=== PATIENT | female | born 1970 | race African-American/Black ===

== ENCOUNTER 2017-10-08 10:23 | Observation (INO) | payer OTHER ==
[2017-10-08] MEDS: IV NORMAL SALINE 1000ML BAG 1,000 ML IV ×2 (01:17→12:51)
[2017-10-08 11:00] LABS: POC GLUCOSE 83 mg/dL (70-99)
[2017-10-08 11:01] LABS: BILIRUBIN,URINE NEGATIVE (NEG); CLARITY,URINE CLEAR; COLOR,URINE YELLOW; GLUCOSE,URINE NEGATIVE (NEG); NITRITE,URINE NEGATIVE (NEG); PH,URINE 7.5; PROTEIN,URINE NEGATIVE (NEG-TRACE); UROBILINOGEN,URINE 0.2 mg/dL (0.2 mg/dL)
[2017-10-08 11:05] LABS: ADD MAN DIFF? NO
[2017-10-08 11:07] LABS: BASO % 1 % (0-3); EOS # 0.1 x10^3/uL (0.0-0.7); EOS % 3 % (0-3); HEMATOCRIT 40.2 % (36.0-47.0); HEMOGLOBIN 13.7 g/dL (12.0-15.5); LYMPH % 48 % (24-48); MEAN CORPUSCULAR HEMOGLOBIN 30 pg (25-35); MEAN CORPUSCULAR HGB CONC 34 g/dL (31-37); MEAN CORPUSCULAR VOLUME 89 fL (79-100); MONO # 0.4 x10^3/uL (0.0-1.1); MONO % 9 % (0-9); NEUT # 1.7 x10^3uL (1.8-7.7); NEUT % 39 % (31-73); PLATELET COUNT 380 x10^3/uL (140-400); RED BLOOD COUNT 4.53 x10^6/uL (3.50-5.40); RED CELL DISTRIBUTION WIDTH 13.8 % (11.5-14.5); WHITE BLOOD COUNT 4.3 x10^3/uL (4.0-11.0)
[2017-10-08 11:08] LABS: BARBITURATES NEG (NEG); BENZODIAZEPINES NEG (NEG); CANNABINOIDS NEG (NEG); COCAINE NEG (NEG); METHADONE NEG (NEG); OPIATES NEG (NEG); PHENCYCLIDINE NEG (NEG)
[2017-10-08 11:09] LABS: AMPHETAMINE/METHAMPHETAMINE NEG (NEG); ETHANOL, URINE NEG (NEG)
[2017-10-08 11:10] LABS: SQUAMOUS EPITHELIAL CELL,UR MOD /LPF
[2017-10-08 11:11] LABS: BACTERIA,URINE FEW /HPF (0-FEW); RBC,URINE 0 /HPF (0-2)
[2017-10-08 11:16] LABS: ANION GAP 11 (6-14); BLOOD UREA NITROGEN 14 mg/dL (7-20); CALCIUM 9.3 mg/dL (8.5-10.1); CARBON DIOXIDE 29 mmol/L (21-32); CHLORIDE 101 mmol/L (98-107); CREATININE 0.8 mg/dL (0.6-1.0); GFR 92.6; GLUCOSE 93 mg/dL (70-99); POTASSIUM 3.5 mmol/L (3.5-5.1); SODIUM 141 mmol/L (136-145)
[2017-10-08 11:17] LABS: PARTIAL THROMBOPLASTIN TIME 26 SEC (24-38); PROTHROMBIN TIME PATIENT 12.4 SEC (11.7-14.0)
[2017-10-08 11:22] LABS: ALBUMIN 3.9 g/dL (3.4-5.0); ALK PHOS 48 U/L (46-116); ALT (SGPT) 25 U/L (14-59); AST (SGOT) 14 U/L (15-37); TOTAL BILIRUBIN 0.6 mg/dL (0.2-1.0); TOTAL PROTEIN 7.9 g/dL (6.4-8.2)
[2017-10-08 11:33] LABS: DIRECT BILIRUBIN < 0.1 mg/dL (0.0-0.2)
[2017-10-08] MEDS ORDERED: MORPHINE SULFATE 4 MG/ML DISP.SYRIN. IV (12:45)
[2017-10-08] MEDS ORDERED: ONDANSETRON PF 4 MG/2 ML VIAL. IV (12:45)
[2017-10-08] MEDS: IOHEXOL 300 MG/ML 100ML VIAL. IV (13:00)
[2017-10-08] MEDS: diazePAM 5 MG TABLET PO (17:46)
[2017-10-08] MEDS: ENOXAPARIN 40 MG/0.4 ML SYRINGE. SQ (18:00)
[2017-10-08] MEDS: METOPROLOL TART IMMED RELEASE 50 MG TABLET. PO (20:51)
[2017-10-09 05:14] LABS: ADD MAN DIFF? NO
[2017-10-09 05:31] LABS: BASO % 1 % (0-3); EOS # 0.2 x10^3/uL (0.0-0.7); EOS % 3 % (0-3); HEMATOCRIT 33.4 % (36.0-47.0); HEMOGLOBIN 11.5 g/dL (12.0-15.5); LYMPH # 2.6 x10^3/uL (1.0-4.8); LYMPH % 53 % (24-48); MEAN CORPUSCULAR HEMOGLOBIN 31 pg (25-35); MEAN CORPUSCULAR HGB CONC 34 g/dL (31-37); MEAN CORPUSCULAR VOLUME 89 fL (79-100); MONO # 0.4 x10^3/uL (0.0-1.1); MONO % 8 % (0-9); NEUT # 1.8 x10^3uL (1.8-7.7); NEUT % 36 % (31-73); PLATELET COUNT 311 x10^3/uL (140-400); RED BLOOD COUNT 3.75 x10^6/uL (3.50-5.40); RED CELL DISTRIBUTION WIDTH 14.1 % (11.5-14.5)
[2017-10-09 05:51] LABS: ANION GAP 8 (6-14); BLOOD UREA NITROGEN 15 mg/dL (7-20); CALCIUM 8.2 mg/dL (8.5-10.1); CARBON DIOXIDE 26 mmol/L (21-32); CHLORIDE 107 mmol/L (98-107); CREATININE 0.7 mg/dL (0.6-1.0); GFR 108.1; GLUCOSE 89 mg/dL (70-99); POTASSIUM 3.2 mmol/L (3.5-5.1); SODIUM 141 mmol/L (136-145)
[2017-10-09] MEDS: hydroCHLOROthiazide 12.5 MG CAPSULE PO (09:44)
[2017-10-09] MEDS: METOPROLOL TART IMMED RELEASE 50 MG TABLET. PO (09:45)
[2017-10-09] MEDS: POTASSIUM CHLORIDE 20 MEQ TABLET.ER. PO (12:46)
[2017-10-09] MEDS ORDERED: ASPIRIN CHEWABLE 81 MG TABLET. PO (16:00)
[2017-10-09] MEDS ORDERED: ATORVASTATIN CALCIUM 10 MG TABLET. PO (21:00)
== END 2017-10-09 16:17 | disposition home or self-care (01) ==
LOC: ER 10:23 → 6 SOUTH 12:35
DX: G45.9 Transient cerebral ischemic attack, unspecified (principal); R20.2 Paresthesia of skin; I10 Essential (primary) hypertension; M79.7 Fibromyalgia; Z86.73 Personal history of transient ischemic attack (TIA), and cerebral infarction without residual deficits
CPT/HCPCS: 36415; 70450; 70496; 70498; 70551; 80048; 80076; 80307; 81001; 82962; 85025; 85610; 85730; 93005; 96360; 96361; 99285-25; G0378; G0379; J7030; Q9967

== ENCOUNTER 2019-06-29 02:23 | Emergency (ER) | payer SELFPAY ==
[~2019-06-29] VITALS: Ht 154.9 cm; Wt 63.5 kg
[~2019-06-29 02:23] MED LIST: ASPI-630 PO; ATOR10TA60 PO; EPIPEN 2-P0.3 MG/0.3 IJ; HYDR12.58 PO; METO50TA6 PO; PRED20TA PO
[2019-06-29 03:08] LABS: BASO # 0.1 x10^3/uL (0.0-0.2); BASO % 1 % (0-3); EOS # 0.2 x10^3/uL (0.0-0.7); EOS % 3 % (0-3); HEMATOCRIT 39.9 % (36.0-47.0); HEMOGLOBIN 13.3 g/dL (12.0-15.5); LYMPH # 2.9 x10^3/uL (1.0-4.8); LYMPH % 52 % (24-48); MEAN CORPUSCULAR HEMOGLOBIN 30 pg (25-35); MEAN CORPUSCULAR HGB CONC 33 g/dL (31-37); MEAN CORPUSCULAR VOLUME 89 fL (79-100); MONO # 0.5 x10^3/uL (0.0-1.1); MONO % 8 % (0-9); NEUT % 36 % (31-73); PLATELET COUNT 362 x10^3/uL (140-400); RED BLOOD COUNT 4.51 x10^6/uL (3.50-5.40); RED CELL DISTRIBUTION WIDTH 13.6 % (11.5-14.5); WHITE BLOOD COUNT 5.6 x10^3/uL (4.0-11.0)
[2019-06-29] MEDS ORDERED: DEXAMETHASONE SOD PHOS 4 MG/ML VIAL IVP ONE (03:45)
[2019-06-29] MEDS ORDERED: FAMOTIDINE 20 MG/2 ML VIAL IVP ONE (03:45)
[2019-06-29 03:46] LABS: CALCIUM 8.7 mg/dL (8.5-10.1); CREATININE 0.7 mg/dL (0.6-1.0); GFR 107.6; POTASSIUM 4.4 mmol/L (3.5-5.1)
--- NOTE | 2019-06-29 03:49 | PHYS DOC ---
Past Medical History Past Medical History: Hypertension Additional Past Medical Histor: pt denies hx htn-it was listed Past Surgical History: , Tubal ligation, Other Additional Past Surgical Histo: UTETERINE ABLATION Alcohol Use: None Drug Use: None Adult General Chief Complaint Chief Complaint: ALLERGIC REACTION HPI HPI 48-year-old female presents to the emergency department with complaints of allergic reaction, right facial paresthesias as well as right arm paresthesia. Patient was last normal 8 PM. She woke 1 AM with the paresthesias. She states she took Benadryl around 8 PM secondary to the allergic reaction. She does have some mild edema appreciated to her right eye compared to the left. Patient denies any headache or visual change at this time. She has any chest pain or shortness of breath. He makes her symptoms worse, nothing makes her symptoms be tter Review of Systems Review of Systems Constitutional: Denies fever or chills [] Eyes: Denies change in visual acuity, redness, or eye pain , bilateral eye swelling Respiratory: Denies cough or shortness of breath [] Cardiovascular: No additional information not addressed in HPI [] GI: Denies abdominal pain, nausea, vomiting, bloody stools or diarrhea [] Musculoskeletal: Denies back pain or joint pain [] Integument: Denies rash or skin lesions [] Neurologic: Denies headache, focal weakness or sensory changes, or seizures appreciated to right side of face as well as right upper extremity [] All other systems were reviewed and found to be within normal limits, except as documented in this note. Current Medications Current Medications Current Medications Medications (Trade) Dose Ordered Sig/Jay Start Time Stop Time Status Last Admin Dose Admin Dexamethasone Sodium Phosphate (Decadron) 4 mg 1X ONCE 06/29/19 03:45 06/29/19 03:47 DC 06/29/19 03:57 4 MG Famotidine (Pepcid Vial) 20 mg 1X ONCE 06/29/19 03:45 06/29/19 03:47 DC 06/29/19 03:56 20 MG Info (CONTRAST GIVEN -- Rx MONITORING) 1 each PRN DAILY PRN 06/29/19 04:15 07/01/19 04:14 Iohexol (Omnipaque 300 Mg/ml) 75 ml 1X ONCE 06/29/19 04:15 06/29/19 04:16 DC 06/29/19 04:18 75 ML Allergies Allergies Allergies Coded Allergies Type Severity Reaction Last Updated Verified Penicillins Allergy Severe swelling 10/08/17 Yes Physical Exam Physical Exam Constitutional: Well developed, well nourished, no acute distress, non-toxic appearance. [] HENT: Normocephalic, atraumatic, bilateral external ears normal, oropharynx moist, no oral exudates, nose normal. [] Eyes: PERRLA, EOMI, conjunctiva normal, no discharge, mild swelling appreciated to right upper eyelid, left eye.[] Cardiovascular:Heart rate regular rhythm, no murmur [] Lungs & Thorax: Bilateral breath sounds clear to auscultation [] Abdomen: Bowel sounds normal, soft, no tenderness, no masses, no pulsatile masses. [] Skin: Warm, dry, no erythema, no rash. [] Extremities: No tenderness, no cyanosis, no clubbing, ROM intact, no edema. [] Neurologic: Alert and oriented X 3, no focal deficits noted, parasthesia to right face, right upper extremity [] Psychologic: Affect normal, judgement normal, mood normal. [] Current Patient Data Vital Signs Vital Signs Date Time Temp Pulse Resp B/P (MAP) Pulse Ox O2 Delivery O2 Flow Rate FiO2 06/29/19 02:38 98.5 69 20 154/94 (114) 98 Room Air 98.5 Lab Values Laboratory Tests Test 06/29/19 02:58 White Blood Count 5.6 x10^3/uL (4.0-11.0) Red Blood Count 4.51 x10^6/uL (3.50-5.40) Hemoglobin 13.3 g/dL (12.0-15.5) Hematocrit 39.9 % (36.0-47.0) Mean Corpuscular Volume 89 fL (79-100) Mean Corpuscular Hemoglobin 30 pg (25-35) Mean Corpuscular Hemoglobin Concent 33 g/dL (31-37) Red Cell Distribution Width 13.6 % (11.5-14.5) Platelet Count 362 x10^3/uL (140-400) Neutrophils (%) (Auto) 36 % (31-73) Lymphocytes (%) (Auto) 52 % (24-48) H Monocytes (%) (Auto) 8 % (0-9) Eosinophils (%) (Auto) 3 % (0-3) Basophils (%) (Auto) 1 % (0-3) Neutrophils # (Auto) 2.0 x10^3/uL (1.8-7.7) Lymphocytes # (Auto) 2.9 x10^3/uL (1.0-4.8) Monocytes # (Auto) 0.5 x10^3/uL (0.0-1.1) Eosinophils # (Auto) 0.2 x10^3/uL (0.0-0.7) Basophils # (Auto) 0.1 x10^3/uL (0.0-0.2) Sodium Level 139 mmol/L (136-145) Potassium Level 4.4 mmol/L (3.5-5.1) Chloride Level 105 mmol/L (98-107) Carbon Dioxide Level 26 mmol/L (21-32) Anion Gap 8 (6-14) Blood Urea Nitrogen 16 mg/dL (7-20) Creatinine 0.7 mg/dL (0.6-1.0) Estimated GFR (Cockcroft-Gault) 107.6 BUN/Creatinine Ratio 23 (6-20) H Glucose Level 96 mg/dL (70-99) Calcium Level 8.7 mg/dL (8.5-10.1) Total Bilirubin 0.5 mg/dL (0.2-1.0) Aspartate Amino Transferase (AST) 22 U/L (15-37) Alanine Aminotransferase (ALT) 21 U/L (14-59) Alkaline Phosphatase 43 U/L (46-116) L Total Protein 7.5 g/dL (6.4-8.2) Albumin 3.6 g/dL (3.4-5.0) Albumin/Globulin Ratio 0.9 (1.0-1.7) L Laboratory Tests 06/29/19 02:58 Laboratory Tests 06/29/19 02:58 EKG EKG [] Radiology/Procedures Radiology/Procedures [facility] [address] [place], [place] [id number] IMAGING REPORT Signed PATIENT: KEITH GROSSMAN V ACCOUNT: [id number] : 1970 LOCATION: ER AGE: 48 SEX: F EXAM STATUS: REG ER ORD. PHYSICIAN: EVA RODNEY MD REASON: parasthesia face/right arm PROCEDURE: CT ANGIOGRAPHY HEAD AND NECK Examination: CT angiography head and neck without and with IV contrast COMPARISON: 10/08/2017 History: Paresthesia. TECHNIQUE: Axial CT angiographic images of the head and neck were performed with IV contrast. Coronal and sagittal 3-D MIP reformats are performed. 3-D Volumetric reformats of the carotids and [place] of [place] were performed. Exposure: One or more of the following individualized dose reduction techniques were utilized for this examination: 1. Automated exposure control 2. Adjustment of the mA and/or kV according to patient size 3. Use of iterative reconstruction technique Stenosis calculations for CT, MR, and conventional angiography are based upon measurements of the distal ICA diameter in accordance with the NASCET methodology. Stenosis calculations for carotid ultrasound studies are derived from validated velocity criteria which are known to correlate with the NASCET methodology. FINDINGS: The origin of the great vessels from the arch of the aorta are patent. The bilateral common carotid arteries, internal carotid arteries, petrous, cavernous portions of the vertebral arteries, bilateral middle cerebral arteries, anterior cerebral arteries, posterior cerebral arteries, bilateral vertebral arteries and the basilar artery are patent. Mild degenerative changes cervical spine IMPRESSION: 1. No evidence of occlusive thrombus identified. Electronically signed by: Miguel Hilario MD (06/29/2019 4:38 AM) [facility] DICTATED and SIGNED BY: MIGUEL HILARIO MD DATE: 06/29/19 0438 [] Course & Med Decision Making Course & Med Decision Making Pertinent Labs and Imaging studies reviewed. (See chart for details) []48-year-old female presents to the emergency department with complaints of allergic reaction, right facial paresthesias as well as right arm paresthesia. Patient was last normal 8 PM. She woke 1 AM with the paresthesias. She states she took Benadryl around 8 PM secondary to the allergic reaction. She does have some mild edema appreciated to her right eye compared to the left. Patient denies any headache or visual change at this time. She has any chest pain or shortness of breath. He makes her symptoms worse, nothing makes her symptoms better Labs/Imaging reviewed No acute findings Recommend dc home and follow up with PCP Gerardo Disclaimer Dragon Disclaimer This electronic medical record was generated, in whole or in part, using a voice recognition dictation system. NIHSS Stroke Scale NIH Stroke Scale: NIH Stroke Scale Response (Comments) Value Level of Consciousness: 0 Alert/Responsive 0 LOC Questions: 0 Answers both correctly 0 LOC Commands: 0 Performs both tasks 0 Best Gaze: 0 Normal 0 Visual: 0 No visual loss 0 Facial Palsy: 0 Normal, symmetrical 0 Motor - Left Arm 0 No drift 0 Motor - Right Arm 0 No drift 0 Motor - Left Leg 0 No drift 0 Motor: Right Leg 0 No drift 0 Limb Ataxia: 0 Absent 0 Sensory: 0 No loss 0 Best Language: 0 Normal 0 Dysathria: 0 Normal 0 Extinction and Inattention: 0 Normal 0 Total 0 Departure Departure Impression: Primary Impression: Allergic reaction Additional Impression: Paresthesias Disposition: 01 HOME, SELF-CARE Condition: IMPROVED Referrals: ISREAL MICHEL MD (PCP) Patient Instructions: Paresthesia Additional Instructions: Recommend follow up with PCP 3 - 5 days Return to the ER with worsening symptoms, intractable pain, fever, altered mental status Tylenol/Motrin as needed for pain Problem Qualifiers Primary Impression: Allergic reaction Encounter type: initial encounter Qualified Codes: T78.40XA - Allergy, unspecified, initial encounter EVA RODNEY MD Jun 29, 2019 03:49
[2019-06-29 03:53] LABS: ALBUMIN 3.6 g/dL (3.4-5.0); ALBUMIN/GLOBULIN RATIO 0.9 (1.0-1.7); TOTAL BILIRUBIN 0.5 mg/dL (0.2-1.0); TOTAL PROTEIN 7.5 g/dL (6.4-8.2)
[2019-06-29] MEDS ORDERED: CONTRAST GIVEN. MC PRN (04:15)
[2019-06-29] MEDS ORDERED: IOHEXOL 300 MG/ML 100ML VIAL. IV ONE (04:15)
--- NOTE | 2019-06-29 04:40 | RAD ---
Examination: CT angiography head and neck without and with IV contrast COMPARISON: 10/08/2017 History: Paresthesia. TECHNIQUE: Axial CT angiographic images of the head and neck were performed with IV contrast. Coronal and sagittal 3-D MIP reformats are performed. 3-D Volumetric reformats of the carotids and [place] of [place] were performed. Exposure: One or more of the following individualized dose reduction techniques were utilized for this examination: 1. Automated exposure control 2. Adjustment of the mA and/or kV according to patient size 3. Use of iterative reconstruction technique Stenosis calculations for CT, MR, and conventional angiography are based upon measurements of the distal ICA diameter in accordance with the NASCET methodology. Stenosis calculations for carotid ultrasound studies are derived from validated velocity criteria which are known to correlate with the NASCET methodology. FINDINGS: The origin of the great vessels from the arch of the aorta are patent. The bilateral common carotid arteries, internal carotid arteries, petrous, cavernous portions of the vertebral arteries, bilateral middle cerebral arteries, anterior cerebral arteries, posterior cerebral arteries, bilateral vertebral arteries and the basilar artery are patent. Mild degenerative changes cervical spine IMPRESSION: 1. No evidence of occlusive thrombus identified. Electronically signed by: Miguel Hilario MD (06/29/2019 4:38 AM) [facility]
[2019-06-29 05:30] VITALS: BP 130/90
== END 2019-06-29 05:31 | disposition home or self-care (01) ==
LOC: ER 02:23
DX: T78.40XA Allergy, unspecified, initial encounter (principal); R20.2 Paresthesia of skin; H02.841 Edema of right upper eyelid; I10 Essential (primary) hypertension; Z98.890 Other specified postprocedural states; Z98.51 Tubal ligation status; Z88.0 Allergy status to penicillin; X58.XXXA Exposure to other specified factors, initial encounter; Y93.89 Activity, other specified; Y92.89 Other specified places as the place of occurrence of the external cause; Y99.8 Other external cause status
CPT/HCPCS: 36415; 70496; 70498; 80053; 85025; 96374; 96375; 99285; J1100; J3490; Q9967